=== PATIENT | male | born 1955 | race Caucasian/White ===

== ENCOUNTER 2017-11-14 18:48 | Emergency (ER) | payer OTHER ==
[~2017-11-14] VITALS: Ht 175.3 cm; Wt 95.8 kg
[2017-11-14 19:00] VITALS: Ht 175.3 cm; Wt 95.8 kg
[2017-11-14 21:01] VITALS: BP 140/70
== END 2017-11-14 21:01 | disposition home or self-care (01) ==
LOC: ED 18:48
DX: S20.212A Contusion of left front wall of thorax, initial encounter (principal); I50.9 Heart failure, unspecified; I11.9 Hypertensive heart disease without heart failure; E11.9 Type 2 diabetes mellitus without complications; W20.8XXA Other cause of strike by thrown, projected or falling object, initial encounter; Y93.89 Activity, other specified; Y92.89 Other specified places as the place of occurrence of the external cause; Y99.8 Other external cause status
CPT/HCPCS: J1885